=== PATIENT | female | born 1990 | race Two or more races ===

== ENCOUNTER 2020-01-01 12:47 | Emergency (ER) | payer BC, OTHER ==
[2020-01-01 12:58] VITALS: BP 109/72; PULSE 60
[2020-01-01] MEDS ORDERED: Sodium Chloride 0.9% 10 ML Syringe FLUSH PRN (14:24)
--- NOTE | 2020-01-01 14:26 | EDM.PDOC ---
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 The patient is approximately 5 weeks her last menstrual period was over 5 weeks ago she had a positive test done several days ago. She is not had any cramping she has not had any spotting no vaginal discharge. She has a lot of urinary frequency but not a lot of dysuria. 24 hours if not better sooner. The patient is also had worsening nasal congestion and a mild cough. This is been going on the last several days. Patient has not had any fevers or chills. Pelvic Pain Score (Numeric/FACES): 3 - Related Data Allergies Allergy/AdvReac Type Severity Reaction Status Date / Time No Known Allergies Allergy Verified 01/01/20 12:59 Home Meds: Home Meds . [No Known Home Meds] 01/01/20 [History] Past Medical History - Past Health History Medical/Surgical History: Denies Medical/Surgical History Social & Family History - Tobacco Use Smoking Status *Q: Former Smoker Used Tobacco, but Quit: Yes Month/Year Tobacco Last Used: december; 3 days ago ED ROS GENERAL - Review of Systems Review Of Systems: See Below Constitutional: Reports: No Symptoms HEENT: Reports: Rhinitis. Denies: Ear Pain, Throat Pain Respiratory: Reports: Cough. Denies: Sputum Cardiovascular: Reports: No Symptoms Endocrine: Reports: No Symptoms GI/Abdominal: Reports: Abdominal Pain. Denies: Constipation, Diarrhea, Nausea, Vomiting : Reports: Frequency, Urgency. Denies: Discharge, Dysuria, Hematuria Musculoskeletal: Reports: No Symptoms Skin: Reports: No Symptoms Neurological: Reports: No Symptoms ED EXAM - Physical Exam Exam: See Below Exam Limited By: No Limitations General Appearance: Alert, No Apparent Distress Eye Exam: Bilateral Eye: Normal Inspection Ears: Normal External Exam, Normal Canal, Hearing Grossly Normal, Normal TMs Nose: Normal Inspection, No Blood, Clear Rhinorrhea, Other (Mild mucosal erythema). No: Normal Mucosa Throat/Mouth: Normal Inspection, Normal Lips, Normal Teeth, Normal Gums, Normal Oropharynx, Normal Voice, No Airway Compromise Head: Atraumatic, Normocephalic Neck: Normal Inspection, Supple, Non-Tender, Full Range of Motion. No: Lymphadenopathy (L), Lymphadenopathy (R) Respiratory/Chest: No Respiratory Distress, Lungs Clear, Normal Breath Sounds Cardiovascular: Regular Rate, Rhythm, No Edema, No Murmur GI/Abdominal Exam: Normal Bowel Sounds, Soft, Tender (She has suprapubic discomfort). No: Guarding, Rigid, Rebound Back Exam: Normal Inspection. No: CVA Tenderness (L), CVA Tenderness (R) Course - Vital Signs Last Recorded V/S: Last Vital Signs Temp 36.8 C 01/01/20 12:55 Pulse 60 01/01/20 12:55 Resp BP 109/72 01/01/20 12:55 Pulse Ox 99 01/01/20 12:55 - Orders/Labs/Meds Orders: Active Orders 24 hr Category Date Time Status Peripheral IV Care [RC] . DIRECTED Care 01/01/20 14:24 Active ABO/RH TYPE [BBK] Stat Lab 01/01/20 15:32 Received Sodium Chloride 0.9% [Saline Flush] Med 01/01/20 14:24 Active 10 ml FLUSH ASDIRECTED PRN Peripheral IV Insertion Adult [OM.PC] Routine Oth 01/01/20 14:24 Ordered Medication Orders Sodium Chloride (Saline Flush) 10 ml FLUSH ASDIRECTED PRN PRN Reason: Keep Vein Open Labs: Laboratory Tests 01/01/20 01/01/20 01/01/20 Range/Units 14:51 15:32 15:32 WBC 10.02 (3.98-10.04) K/mm3 RBC 4.37 (3.98-5.22) M/mm3 Hgb 13.7 (11.2-15.7) gm/dl Hct 40.7 (34.1-44.9) % MCV 93.1 (79.4-94.8) fl MCH 31.4 (25.6-32.2) pg MCHC 33.7 (32.2-35.5) g/dl RDW Std Deviation 43.1 (36.4-46.3) fL Plt Count 276 (182-369) K/mm3 MPV 9.9 (9.4-12.3) fl Neut % (Auto) 54.2 (34.0-71.1) % Lymph % (Auto) 36.2 (19.3-51.7) % [place] % (Auto) 7.3 (4.7-12.5) % Eos % (Auto) 1.7 (0.7-5.8) Baso % (Auto) 0.5 (0.1-1.2) % Neut # (Auto) 5.43 (1.56-6.13) K/mm3 Lymph # (Auto) 3.63 (1.18-3.74) K/mm3 [place] # (Auto) 0.73 H (0.24-0.36) K/mm3 Eos # (Auto) 0.17 (0.04-0.36) K/mm3 Baso # (Auto) 0.05 (0.01-0.08) K/mm3 Manual Slide Review Abnormal smear HCG, Quant 716.0 mIU/mL Urine Color Yellow (Yellow) Urine Appearance Slt cloudy H (Clear) Urine pH 7.0 (5.0-8.0) Ur Specific [place] > or = 1.030 (1.005-1.030) Urine Protein Negative (Negative) Urine Glucose (UA) Negative (Negative) Urine Ketones Negative (Negative) Urine Occult Blood Negative (Negative) Urine Nitrite Negative (Negative) Urine Bilirubin Negative (Negative) Urine Urobilinogen 0.2 (0.2-1.0) Ur Leukocyte Esterase Negative (Negative) Urine RBC 0-5 (0-5) /hpf Urine WBC 0-5 (0-5) /hpf Ur Squamous Epith Cells 0-5 (0-5) /hpf Urine Bacteria Few (FEW) /hpf Urine Mucus Few (FEW) /hpf Blood Type 01/01/20 Range/Units 15:32 WBC (3.98-10.04) K/mm3 RBC (3.98-5.22) M/mm3 Hgb (11.2-15.7) gm/dl Hct (34.1-44.9) % MCV (79.4-94.8) fl MCH (25.6-32.2) pg MCHC (32.2-35.5) g/dl RDW Std Deviation (36.4-46.3) fL Plt Count (182-369) K/mm3 MPV (9.4-12.3) fl Neut % (Auto) (34.0-71.1) % Lymph % (Auto) (19.3-51.7) % [place] % (Auto) (4.7-12.5) % Eos % (Auto) (0.7-5.8) Baso % (Auto) (0.1-1.2) % Neut # (Auto) (1.56-6.13) K/mm3 Lymph # (Auto) (1.18-3.74) K/mm3 [place] # (Auto) (0.24-0.36) K/mm3 Eos # (Auto) (0.04-0.36) K/mm3 Baso # (Auto) (0.01-0.08) K/mm3 Manual Slide Review HCG, Quant mIU/mL Urine Color (Yellow) Urine Appearance (Clear) Urine pH (5.0-8.0) Ur Specific [place] (1.005-1.030) Urine Protein (Negative) Urine Glucose (UA) (Negative) Urine Ketones (Negative) Urine Occult Blood (Negative) Urine Nitrite (Negative) Urine Bilirubin (Negative) Urine Urobilinogen (0.2-1.0) Ur Leukocyte Esterase (Negative) Urine RBC (0-5) /hpf Urine WBC (0-5) /hpf Ur Squamous Epith Cells (0-5) /hpf Urine Bacteria (FEW) /hpf Urine Mucus (FEW) /hpf Blood Type O NEGATIVE Meds: Medications Generic Name Dose Route Start Last Admin Trade Name Freq PRN Reason Stop Dose Admin Sodium Chloride 10 ml 01/01/20 14:24 Saline Flush FLUSH ASDIRECTED PRN Keep Vein Open - Re-Assessments/Exams Free Text/Narrative Re-Assessment/Exam: 01/01/20 17:49 Patient is quantitative hCG is 716 this is too low for the suspected dates of 5 weeks. Ultrasound shows minimal cystic area within the endometrial cavity uncertainty if this represents an early gestational sac. Urinalysis does not suggest an infectious process. We will have the patient return to the hospital for quantitative hCG. And have her follow-up with Dr. Moseley early this next week. Departure - Departure Time of Disposition: 17:55 Disposition: Home, Self-Care 01 Clinical Impression: Threatened - Discharge Information Referrals: Georgette Jara MD [Primary Care Provider] - Forms: ED Department Discharge, ED Return to Work/School Form Additional Instructions: Return to the emergency room with any questions problems or worsening symptoms. Return to the hospital Friday afternoon for repeat blood test. Stay off work for the next 4 days get plenty of rest no heavy lifting. Follow-up with Dr. Moseley early this next week. Drink lots of fluids. Sepsis Event Note - Evaluation Sepsis Screening Result: No Definite Risk - Focused Exam Vital Signs: Vital Signs Temp Pulse BP Pulse Ox 01/01/20 12:55 36.8 C 60 109/72 99 Date Exam was Performed: 01/01/20 Time Exam was Performed: 17:48 - My Orders Last 24 Hours: My Active Orders 01/01/20 14:24 Peripheral IV Care [RC] . DIRECTED Sodium Chloride 0.9% [Saline Flush] 10 ml FLUSH ASDIRECTED PRN Peripheral IV Insertion Adult [OM.PC] Routine 01/01/20 15:32 ABO/RH TYPE [BBK] Stat - Assessment/Plan Last 24 Hours: My Active Orders 01/01/20 14:24 Peripheral IV Care [RC] . DIRECTED Sodium Chloride 0.9% [Saline Flush] 10 ml FLUSH ASDIRECTED PRN Peripheral IV Insertion Adult [OM.PC] Routine 01/01/20 15:32 ABO/RH TYPE [BBK] Stat
--- NOTE | 2020-01-01 16:49 | US ---
Obstetrical ultrasound: Multiple real-time images were obtained. Very minimal cystic area is seen within the endometrial cavity measuring 2.4 mm. Ovaries are seen and showed no abnormality. No free fluid is identified. Impression: 1. Very minimal cystic area within the endometrial cavity. Uncertain if this represents very early gestational sac or other small cyst. If patient continues to have positive test, follow-up study could be obtained in 14 days to confirm normal developing . 2. Other portions of the study are unremarkable. Diagnostic code #2 This report was dictated in [place] Standard Time
== END 2020-01-01 18:04 | disposition home or self-care (01) ==
LOC: JD.ED 12:47
DX: O20.0 Threatened abortion (principal); Z87.891 Personal history of nicotine dependence
CPT/HCPCS: 36415; 76817; 76817-26; 81001; 84702; 85025; 86900; 86901; 99283; 99284-25